=== PATIENT | male | born 1970 | race Caucasian/White ===

== ENCOUNTER 2017-08-07 04:23 | Emergency (ER) | payer OTHER, MEDICAID, SELFPAY ==
[2017-08-07 04:31] VITALS: BP 144/101; PULSE 100; RESP 20; TEMP 36.7; O2SAT 99
[2017-08-07 04:32] VITALS: BP 144/101; PULSE 100; RESP 20; TEMP 36.7; O2SAT 99; BMI 28.0
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
[2017-08-07] MEDS: IBUPROFEN 400 MG TABLET 800 MG PO (04:58)
[2017-08-07 05:27] VITALS: BP 141/95; PULSE 82; RESP 16; O2SAT 97
== END 2017-08-07 05:30 | disposition home or self-care (01) ==
PROVIDERS: Emergency Provider Emergency Medicine
DX: M54.30 Sciatica, unspecified side (principal)
CPT/HCPCS: 99282

== ENCOUNTER 2017-11-19 04:13 | Emergency (ER) | payer OTHER, MEDICAID, SELFPAY ==
[2017-11-19 04:20] VITALS: BP 146/98; PULSE 88; RESP 18; TEMP 36.6; O2SAT 97; BMI 28.0
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
--- NOTE | 2017-11-19 04:38 | DI.RAD.S_ITS ---
PROCEDURE: XR PELVIS 1-2V INDICATIONS: Right hip/pelvic pain TECHNIQUE: Single frontal view(s) of the pelvis acquired. COMPARISON: None. FINDINGS: Bones: No fractures or dislocations. No suspicious bony lesions. Soft tissues: Visualized bowel gas pattern is normal. No suspicious soft tissue calcifications. IMPRESSION: No acute fractures or dislocations. If there is clinical concern for radiographically occult fracture then a noncontrast MRI would be recommended for further evaluation. Dictated by: Jean-Paul Mora M.D. on 11/19/2017 at 8:33 Approved by: Jean-Paul Mora M.D. on 11/19/2017 at 8:49
[2017-11-19 04:45] VITALS: PULSE 63
== END 2017-11-19 04:56 | disposition home or self-care (01) ==
PROVIDERS: Emergency Provider Emergency Medicine
DX: M25.551 Pain in right hip (principal)
CPT/HCPCS: 72170; 99282; 99283

== ENCOUNTER 2017-11-27 09:50 | Emergency (ER) | payer OTHER, MEDICAID, SELFPAY ==
[2017-11-27 09:57] VITALS: BP 131/99; PULSE 93; RESP 18; TEMP 36.2; O2SAT 98; BMI 28.0
[2017-11-27] MEDS: TET,DIPH,PERTUSS(ACELL),VAC/PF 0.5 ML SYRINGE IM (10:10)
--- NOTE | 2017-11-27 10:10 | PC.NURSE ---
Note: documented as laceration to right 3rd finger. Laceration is right 4th finger.
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
== END 2017-11-27 11:07 | disposition left against medical advice (07) ==
PROVIDERS: Emergency Provider Emergency Medicine
DX: S61.219A Laceration without foreign body of unspecified finger without damage to nail, initial encounter (principal)
CPT/HCPCS: 99282; 90715

== ENCOUNTER 2019-04-20 00:19 | Emergency (ER) | payer OTHER, MEDICAID, SELFPAY ==
[2019-04-20 00:25] VITALS: BP 142/101; PULSE 96; RESP 16; TEMP 36.3; O2SAT 96; BMI 28.0
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
[2019-04-20] MEDS: KETOROLAC 60 MG/2 ML VIAL 30 MG IM (01:06)
[2019-04-20 01:49] VITALS: BP 145/101; PULSE 78; RESP 15; TEMP 36.6; O2SAT 99
== END 2019-04-20 01:50 | disposition home or self-care (01) ==
PROVIDERS: Emergency Provider Emergency Medicine
DX: R51 Headache (principal)
CPT/HCPCS: 96372; 99283; J1885

== ENCOUNTER 2020-05-09 06:46 | Emergency (ER) | payer OTHER, MEDICAID, SELFPAY ==
[2020-05-09 06:50] VITALS: BP 150/107; PULSE 124; RESP 20; TEMP 37.1; O2SAT 98; BMI 28.8
== END 2020-05-09 07:11 | disposition left against medical advice (07) ==
PROVIDERS: Emergency Provider Emergency Medicine
CPT/HCPCS: 99281